=== PATIENT | male | born 1980 | race Caucasian/White ===

== ENCOUNTER → 2016-12-16 | Outpatient (CLI) | payer MEDICARE, MEDICAID ==
[~2016-12-16] MED LIST: AMOXICILLIN500 MG PO; CARDIZEM60 MG PO; LEVAQUIN500 MG PO; NORVASC5 MG PO; TYLENOL325 MG PO
== END | disposition disaster alternative care site (69) ==
LOC: LKCL 15:47
DX: R22.2 Localized swelling, mass and lump, trunk (principal)

== ENCOUNTER 2017-02-08 13:31 | Inpatient (IN) | payer MEDICARE, MEDICAID ==
[~2017-02-08] VITALS: Ht 165.1 cm; Wt 47.2 kg
--- NOTE | ~2017-02-08 | CON ---
PATIENT'S NAME: LARRY FALCON [facility] AGE: 36 Y [address] ROOM: [address] [place] [id number] LOCATION: [facility] ADMIT DATE: 02/08/2017 Consultation DISCHARGE DATE: FAMILY PHYSICIAN: Fredy Mars MD ATTENDING PHYSICIAN: Richi Howard REFERRING PHYSICIAN: Fredy Mars MD REASON FOR CONSULT: Tachycardia. HISTORY OF PRESENT ILLNESS: This is a 36-year-old gentleman who was admitted to the hospital with left lower lobe pneumonia. He was found to be very hypertensive as well as tachycardic. His EKG is showing that he is in a sinus tachycardia. He does not really look toxic at this time, but he is currently being treated for the pneumonia. He does not complain of any chest pain. He denies shortness of breath, orthopnea, or PND. In fact, he is lying flat in bed. He denies feeling any palpitations. PAST MEDICAL HISTORY: 1. Leukodystrophy. 2. Sebaceous cyst. PAST SURGICAL HISTORY: He has had a foot surgery. ALLERGIES: NONE TO MEDICATIONS. CURRENT MEDICATIONS: 1. Albuterol sulfate. 2. Apresoline 20 mg every 4 hours as needed. 3. Zofran 2 mg up to 4 mg IV every 4 hours as needed. 4. Tylenol 325 mg p.o. every day. 5. Norvasc 5 mg p.o. daily. 6. Levaquin 500 mg IV every day. FAMILY HISTORY: Mother has hypertension. Father has hypercholesterolemia. SOCIAL HISTORY: He does not drink or smoke. He is wheelchair-bound. REVIEW OF SYSTEMS: GENERAL: He does not look toxic. HEAD: No history of headaches. PATIENT'S NAME: LARRY FALCON [facility] AGE: 36 Y [address] ROOM: [address] [place], [place] [address] LOCATION: [facility] ADMIT DATE: 02/08/2017 Consultation DISCHARGE DATE: FAMILY PHYSICIAN: Fredy Mars MD ATTENDING PHYSICIAN: Richi Howard EYES: He wears corrective lenses. THROAT: He does have difficulty with swallowing. PULMONARY: Currently. He is being treated for pneumonia. CARDIOVASCULAR: Per HPI. GASTROINTESTINAL: Negative for nausea, vomiting, or diarrhea. No melena or hematochezia. GENITOURINARY: Negative for urinary frequency or urgency. MUSCULOSKELETAL: He has leukodystrophy with weakness in his legs. PHYSICAL EXAMINATION: VITAL SIGNS: He is 5 feet 5 inches. He weighs 104 pounds. Blood pressure is 140/80, heart rate is 110 to 120. SKIN: Warm, dry, and pink. HEENT: Pupils equal, round, and react briskly to light. EOMs are intact. NECK: Soft and supple. RESPIRATORY: Lung sounds are clear without wheezes. CARDIOVASCULAR: Tachycardic. Regular. Without murmur, rub, or click. ABDOMEN: Soft. Bowel sounds are present. EXTREMITIES: No peripheral edema. ASSESSMENT: Sinus tachycardia. We will check a 12-lead EKG. This certainly could be related to fever. We will initially follow along. If he does not start to slow down, we will talk about adding different medications. The Assessment and Plan, History of Present Illness, and Physical Exam are per Dr. Arellano. We would like to thank Dr. Mars for allowing us to participate in the patient's care. MANJIT BETTS APRN FOR MD AVNI DA SILVA/stephen /[id number] d: 02/10/17 1642 t: 03/11/17 0911, CONSULTATION REPORT
--- NOTE | ~2017-02-08 | DS ---
PATIENT'S NAME: LARRY FALCON [facility] AGE: 36 Y [address] ROOM: [address] [address] LOCATION: [facility] ADMIT DATE: 02/08/2017 Discharge Summary DISCHARGE DATE: 02/10/2017 FAMILY PHYSICIAN: Shayy Mars MD ATTENDING PHYSICIAN: Shayy Mars FINAL DIAGNOSES: 1. Left upper lobe pneumonia. 2. Tachycardia. 3. Hypertension. PRINCIPAL PROCEDURES: None. REASON FOR ADMIT: This 36-year-old male was admitted with a pneumonia. He had undergone a CT scan, which did show a left upper lobe pneumonia. He is also found to be significantly hypertensive and little tachycardic. He did have Cardiology evaluate him. Please see dictated H and P for full details. HOSPITAL COURSE: The patient was initially admitted as his parents did not feel like they could take care of him at home. He subsequently was placed on IV levofloxacin. Did have Cardiology see him. They have given him some Cardizem IV. Heart rate subsequently did improve and he continued to improve over the next couple of days. On the date of discharge, he was still on room air as he never got hypoxic. His white cell count was normal and he was ready to be discharged. DISCHARGE INSTRUCTIONS: He will follow up with me in 1 week. DISCHARGE MEDICATIONS: He will be placed on: 1. Amlodipine 5 mg once a day. 2. Cardizem 60 mg b.i.d. 3. Levofloxacin 500 one a day for an additional 7 days. PLAN: He will call or return if he has any further problems or concerns. He voiced understanding of that plan. SHAYY MARS MD TAB/modl /[id number] d: 03/02/17 0140 t: 03/10/17 1629, DISCHARGE SUMMARY
[2017-02-08] MEDS ORDERED: TYLENOL325 MG PO (16:06)
[2017-02-08] MEDS ORDERED: AMOXICILLIN500 MG PO (16:06)
--- NOTE | 2017-02-08 16:11 | NUR ---
Pt is 36 y/o male admit for pneumonia for . Pt alert and oriented x3. 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 Hx cough past few days and a sore throat. Pt went to clinic this am. Sent here for CT scan and was found to have lower lobe pneumonia. Pt is wheelchair bound and total lift. Not able to stand on his legs due to weakness. 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 Pt lives at [facility] during the week and goes home to stay with parents on weekends. Parents at bedside.
--- NOTE | 2017-02-09 14:32 | NUR ---
Reviewed chart and nurses notes and then visited patient. Introduced self and care management services to him, very pleasant developmentally delayed gentleman. Denies needing anything when I visited him, no family or [facility] staff in room when I visited. Per nursing notes, lives at [facility] home during the week and home with parents on weekends. Receivable Executive will follow and assist with dc planning as needs identified.
--- NOTE | 2017-02-09 17:26 | NUR ---
Pt alert oriented, pleasant and cooperative. He has eaten fairly well on own. Denies Sore throat today. Harsh loose cough at times. Pt lungs clear and diminished. Temp normal today. On tele and no calls. Pt had basth, Up in recliner most of shift. IV was saline locked. Tachy 122-135 all shift and BP 144/99 up to 164/107 late afternoon. Sats WNL on R/a. Dr Mars called about BP and norvasc 1 given about 1700 and will be daily. EKG today. Denies pain. Voids per urinal with assistance.
--- NOTE | 2017-02-10 04:33 | NUR ---
Significant Event: Alert and oriented. Devolpmental delay and minimal movement of lower extremties r/t leukodystrophy. Hypetensive and tachycardic beginning of shift. Dr. Mars notified MD notified as pt remained hypertensive and tachycardic after Norvasc given. Dr. Mars requested I talk to Cardiology as pt in the past has not been HTN or tachcycardic. Cardizem 60 mg PO given. HR's currently in 80's. Last BP was 151/96. Telemetry in use. Lungs clear and diminished and diminished in bases. Encouraged IS use. Afebrile. Voids per urinal. No BM. Repositioned q 2 hr. SL to L) forearm. Non ambulatory, pivot transfer from chair to bed. Denies pain. Follow up: PRN hydralazine for SBP >160
[2017-02-10 05:42] LABS: HEMATOCRIT 43.5 % (37.0-53.0); HEMOGLOBIN 14.4 g/dL (12.0-17.0); MCHC 33.1 gm/dL (32.0-36.5); MCV 87.5 fl (83.0-98.0); MPV 9.4 fl (9.4-12.4); PLATELET COUNT 190 K/uL (150-450); RBC 4.97 M/uL (4.00-6.00); WBC 6.2 K/uL (4.0-11.0)
[2017-02-10 06:05] LABS: ANION GAP 14.8 (10.0-19.0); BLOOD UREA NITROGEN 11 mg/dL (6-24); CALCIUM 8.8 mg/dL (8.5-10.5); CHLORIDE 109 mMol/L (96-110); CO2 24 mMol/L (22-32); CREATININE 1.3 mg/dL (0.6-1.3); ESTIMATED GFR (MDRD EQUATION) > 60; POTASSIUM 3.8 mMol/L (3.7-5.1); SODIUM 144 mMol/L (135-145)
[2017-02-10 07:10] LABS: ABSOLUTE NEUTROPHIL CT (ANC) 3.3 K/uL (1.4-9.0); BANDED NEUTROPHIL # 0.3 K/uL (0.0-0.1); BANDED NEUTROPHILS % 5 %; LYMPHOCYTE # 1.9 K/uL (0.8-4.0); LYMPHOCYTE % 31 %; MONOCYTE # 0.6 K/uL (0.0-1.0); SEGMENTED NEUTROPHIL % 48 %
--- NOTE | 2017-02-10 08:09 | NUR ---
[phone] Supervised [facility] [employer].
--- NOTE | 2017-02-10 15:14 | NUR ---
Reviewed chart and called and talked with Kassie at [facility] in [place] [phone], she confirms pt lives at [facility] long term during week and home with parents on weekends, they can come get him on discharge during week if thats what parents want, just call and ask for his [facility] medical services manager Alicia Briones. I called and talked with patient father Shane on his cell phone [phone] and introduced self and care management services to him. He reports regardless of when pt is discharged, they will be the ones to call and they will take him home with them for a few days before getting him back to long term. Denies concerns about pt coming home with them on discharge. Will follow.
--- NOTE | 2017-02-10 15:53 | NUR ---
Pt alert, oriented. Denies pain or sore throat. Occasional loose Non productive cough. Pt up in recliner most of shift. He is 2 assist NWB transfer. Pt has eaten well. Takes po fluids well. Sats WNL. This afternoon BP down to 134/[address] Mars. Pt has been watching TV. States he feels good. Very cooperative and cheerful. Family at bedside most of shift.
[2017-02-10] MEDS ORDERED: NORVASC5 MG PO (16:57)
[2017-02-10] MEDS ORDERED: LEVAQUIN500 MG PO (16:58)
[2017-02-10] MEDS ORDERED: CARDIZEM60 MG PO (16:58)
--- NOTE | 2017-02-10 18:08 | NUR ---
PATIENT DISMISSED HOME WITH PARENTS. RX SLIP, RETURN APPT CARD, DISMISSAL TEACHING, NEW MEDS REVIEWED. PATIENT, AND PARENTS VERBALIZE UNDERSTANDING OF INSTRUCTIONS. TO FRONT DOOR IN OWN WHEELCHAIR WITH NURSE TO FAMILY CAR, PARENTS GATHERED UP BELONGINGS.
== END 2017-02-10 17:16 | disposition disaster alternative care site (69) | DRG 194 ==
LOC: GRAD 13:31 → G3N 15:17
PROVIDERS: Family Medicine; ADMIT Family Medicine
DX: J18.1 Lobar pneumonia, unspecified organism (principal); E75.29 Other sphingolipidosis; R00.0 Tachycardia, unspecified; I10 Essential (primary) hypertension; Z99.3 Dependence on wheelchair
CPT/HCPCS: J1956; J7030

== ENCOUNTER → 2017-03-25 | Outpatient (CLI) | payer MEDICARE, MEDICAID | END | disposition disaster alternative care site (69) | LOC: GRAD 03-18 09:00 | DX: R13.10 Dysphagia, unspecified (principal) | CPT/HCPCS: G8996; G8997; G8998 ==